=== PATIENT | female | born 1955 | race Caucasian/White ===

== ENCOUNTER 2019-07-25 07:02 | Day surgery (SDC) | payer OTHER ==
--- NOTE | 2019-07-24 11:01 | PCM.PREANE ---
Preanesthetic Assessment - Procedure Proposed Procedure: Screening Colonoscopy - Anesthesia/Transfusion/Family Hx Anesthesia History: Prior Anesthesia Without Reaction Type of Anesthesia Reaction: Excessive Nausea/Vomiting Family History of Anesthesia Reaction: No Transfusion History: No Prior Transfusion(s) Intubation History: Unknown - Review of Systems General: No Symptoms Pulmonary: No Symptoms (ETOH: 0-3 drinks/2 week) Cardiovascular: No Symptoms Gastrointestinal: No Symptoms (GERD on occasion.) Neurological: No Symptoms (Motion sickness, 0 back pain with left sided radiculopathy improved, arthritic hands) Other: Reports: None - Physical Assessment NPO Status Date: 07/25/19 NPO Status Time: 04:00 Vital Signs: HR:74 BP:115/69 Sat:97% Temp:97.8 RR:16 Height: 1.65 m Weight: 61.689 kg ASA Class: 2 Mental Status: Alert & Oriented x3 Airway Class: Mallampati = 2 Dentition: Reports: Normal Dentition, Caries Thyro-Mental Finger Breadths: 3 Mouth Opening Finger Breadths: 3 ROM/Head Extension: Full Lungs: Clear to Auscultation, Normal Respiratory Effort Cardiovascular: Regular Rate, Regular Rhythm, No Murmurs - Lab Values: All labs reviewed and noted and within acceptable ranges to proceed with scheduled procedure. - Allergies Allergies/Adverse Reactions: Allergies Allergy/AdvReac Type Severity Reaction Status Date / Time levofloxacin [From Levaquin] Allergy Cannot Verified 07/24/19 13:06 Remember - Anesthesia Plan Pre-Op Medication Ordered: None - Acknowledgements Anesthesia Type Planned: MAC Pt an Appropriate Candidate for the Planned Anesthesia: Yes Alternatives and Risks of Anesthesia Discussed w Pt/Guardian: Yes Pt/Guardian Understands and Agrees with Anesthesia Plan: Yes PreAnesthesia Questionnaire - HOME MEDS Home Medications: Home Meds Cholecalciferol (Vitamin D3) [Vitamin D3] 2,000 unit PO DAILY 07/24/19 [History] estradioL [Estradiol] 10 mcg VAG ASDIRECTED 07/24/19 [History] - CURRENT (IN HOUSE) MEDS Current Meds: Current Medications Lactated Ringer's (Ringers, Lactated) 1,000 mls @ 125 mls/hr IV ASDIRECTED KEISHA Lidocaine/Sodium Bicarbonate (Buffered Lidocaine 1% In Ns 8.4%) 0.25 ml IDERM ONETIME PRN PRN Reason: Prior to IV Start Sodium Chloride (Saline Flush) 10 ml FLUSH ASDIRECTED PRN PRN Reason: Keep Vein Open
[~2019-07-25 07:02] MED LIST: Lactated Ringers 1,000 ML IV SCH; Lidocaine 1%/Sod Bicarbonate in NS 8.4% 1 ML Syringe IDERM PRN; Sodium Chloride 0.9% 10 ML Syringe FLUSH PRN
[2019-07-25] MEDS ORDERED: Lidocaine 1% 6 ML ONE (07:05)
[2019-07-25] MEDS ORDERED: Propofol 200 MG/20 ML SDV ONE (07:06)
[2019-07-25] MEDS ORDERED: fentaNYL 100 MCG/2 ML SDV ONE (07:06)
[2019-07-25] MEDS ORDERED: Ondansetron 4 MG/2 ML SDV ONE (07:40)
[2019-07-25] MEDS ORDERED: Scopolamine 1.5 MG Transdermal Patch TRDERM PRN (07:45)
[2019-07-25] MEDS ORDERED: Lactated Ringers 1,000 ML ONE (08:03)
[2019-07-25] MEDS ORDERED: diphenhydrAMINE 50 MG/ML SDV IVPUSH PRN (08:10)
[2019-07-25] MEDS ORDERED: Ondansetron 4 MG/2 ML SDV IVPUSH PRN (08:10)
[2019-07-25] MEDS ORDERED: diphenhydrAMINE 50 MG/ML SDV ONE (08:21)
--- NOTE | 2019-07-25 09:01 | PCM48HPAN ---
Post Anesthesia Note - EVALUATION WITHIN 48HRS OF ANESTHETIC Vital Signs in Normal Range: Yes Patient Participated in Evaluation: Yes Respiratory Function Stable: Yes Airway Patent: Yes Cardiovascular Function Stable: Yes Hydration Status Stable: Yes Pain Control Satisfactory: Yes Nausea and Vomiting Control Satisfactory: Yes Mental Status Recovered: Yes Vital Signs: Last Vital Signs Temp 36.6 C 07/25/19 07:10 Pulse 74 07/25/19 07:10 Resp 16 07/25/19 07:10 BP 115/69 07/25/19 07:10 Pulse Ox 97 07/25/19 07:10
--- NOTE | 2019-07-25 09:12 | PCM.PRNOTE ---
- Free Text/Narrative Note: Date: 07/25/2019 Procedure: screening colonoscopy Endoscopist: Larry Crook MD Findings: good bowel prep. ileocecal valve and appendiceal orifice visualized. Single 1 cm pedunculated polyp in sigmoid colon. Detailed Report: The patient was taken to the endoscopy suite and placed in left lateral decubitus position. Monitored anesthesia care was initiated and time out performed. The anus appeared normal and digital rectal exam was unremarkable. The colonoscope was inserted and advanced to the cecum. The bowel prep was good. The scope was slowly withdrawn and mucosal surfaces carefully inspected. Everything looked normal and healthy until about 30 cm from the anal verge, when a sizeable, ~ 1 cm irregularly shaped stiff pedunculated polyp was identified. Hot snare polypectomy was performed and the specimen successfully retrieved. The rectum appeared normal on retroflexion. Air was evacuated and the scope withdrawn. The patient tolerated the procedure well. Larry Crook MD General Surgery
== END 2019-07-25 10:30 | disposition home or self-care (01) ==
LOC: JD.SDS 07:02
PROVIDERS: ATTEND Surgery
DX: Z12.11 Encounter for screening for malignant neoplasm of colon (principal); D12.5 Benign neoplasm of sigmoid colon; Z88.1 Allergy status to other antibiotic agents; Z79.899 Other long term (current) drug therapy
CPT/HCPCS: 45385; J1200; J2001; J2370; J2405; J2704; J3010; J7120; 00812

== ENCOUNTER 2022-05-17 07:00 | Day surgery (SDC) | payer MEDICARE, BC ==
[~2022-05-17 07:00] MED LIST changes: +Sodium Chloride 0.9% 10 ML Syringe FLUSH SCH
[2022-05-17] MEDS ORDERED: fentaNYL 100 MCG/2 ML SDV ONE (07:11)
[2022-05-17] MEDS ORDERED: Propofol 200 MG/20 ML SDV ONE (07:11)
[2022-05-17] MEDS ORDERED: Lidocaine 1% 2 ML ONE ×2 (07:11)
[2022-05-17] MEDS ORDERED: Ondansetron 4 MG/2 ML SDV ONE (08:37)
== END 2022-05-17 09:34 | disposition home or self-care (01) ==
LOC: JD.SDS 07:00
PROVIDERS: ATTEND Surgery
DX: Z12.11 Encounter for screening for malignant neoplasm of colon (principal); Z86.010 Personal history of colon polyps; Z88.1 Allergy status to other antibiotic agents; Z79.899 Other long term (current) drug therapy; Z80.0 Family history of malignant neoplasm of digestive organs
CPT/HCPCS: G0105; J2405; J2704; J3010; J7120; 00812; J3490